=== PATIENT | female | born 1935 | race Caucasian/White ===

== ENCOUNTER → 2020-06-02 12:35 | Outpatient (CLI) | payer MEDICARE, SELFPAY ==
--- NOTE | ~2020-06-02 | XR_ITS ---
XR chest 2V DATE: 06/02/2020 12:57 INDICATION: Dyspnea. Left arm edema TECHNIQUE: PA and lateral views COMPARISON: 03/23/2018 2 view chest FINDINGS: Heart size is borderline. There is aortic calcification, ectasia and tortuosity. No hilar or mediastinal enlargement. No pulmonary infiltrate or consolidation, pulmonary vascular congestion or pleural effusion or pneumo thorax. Surgical clips of the left upper quadrant. Scoliosis and degenerative spurring of the thoracic spine. Diffuse osteopenia. IMPRESSION: Borderline heart size. Aortic ectasia, calcification, tortuosity Reviewed, dictated and finalized at location A.
== END ==
PROVIDERS: PCP Family Medicine Adolescent Medicine; Visit Provider Family Medicine Adolescent Medicine
DX: R06.09 Other forms of dyspnea (principal); R60.0 Localized edema; R91.8 Other nonspecific abnormal finding of lung field
CPT/HCPCS: 71046

== ENCOUNTER → 2021-06-22 13:56 | Outpatient (CLI) | payer MEDICARE, SELFPAY ==
--- NOTE | ~2021-06-22 | XR_ITS ---
EXAMINATION: [id number] DATE: 06/22/2021 15:10 INDICATION: Right chest wall injury and pain. TECHNIQUE: A frontal view of the chest and 2 views on 3 radiographs of the right ribs were obtained. 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 No pleural effusion or pneumothorax. Cardiomegaly is noted. There are surgical c lips in the abdomen. IMPRESSION: 1. No rib fracture. 2. Cardiomegaly. Reviewed, dictated and finalized at location A.
== END ==
PROVIDERS: PCP Family Medicine Adolescent Medicine; Visit Provider Family Medicine Adolescent Medicine
DX: S29.9XXA Unspecified injury of thorax, initial encounter (principal); I51.7 Cardiomegaly
CPT/HCPCS: 71101